=== PATIENT | female | born 1975 | race Caucasian/White ===

== ENCOUNTER 2019-03-01 07:57 | Day surgery (SDC) | payer MEDICARE, MEDICAID ==
[~2019-03-01] VITALS: Ht 167.6 cm; Wt 72.2 kg
[~2019-03-01 07:57] MED LIST: LIDOCAINE 1%-EPI 1:100K, 30ML ONE; ROPIvacaine/PF 0.5%, 30 ML ONE
[2019-03-01] MEDS ORDERED: FENTANYL PF 250 MCG/5ML ONE (08:13)
[2019-03-01] MEDS ORDERED: MIDAZOLAM 1 MG/ML, 2ML ONE (08:13)
[2019-03-01] MEDS ORDERED: LACTATED RINGERS 1,000 ML IV SCH (08:37)
[2019-03-01 08:45] LABS: HCG UR SG 1.019 (1.003-1.030)
[2019-03-01 09:01] LABS: AMPHETAMINE SCREEN, URINE Negative (Negative); BARBITURATE SCREEN, URINE Negative (Negative); BENZODIAZEPINE SCREEN, URINE Negative (Negative); CANNABINOID SCREEN, URINE Negative (Negative); COCAINE SCREEN, URINE Negative (Negative); METHADONE SCREEN, URINE Negative (Negative); OPIATE SCREEN, URINE Negative (Negative)
[2019-03-01] MEDS ORDERED: NONE PER PT (09:13)
[2019-03-01 09:14] VITALS: BP 101/70
[2019-03-01] MEDS ORDERED: ACETAMINOPHEN 500 MG TABLET PO ONE (09:30)
[2019-03-01] MEDS ORDERED: GABAPENTIN 300 MG CAPSULE PO ONE (09:30)
[2019-03-01] MEDS ORDERED: SCOPOLAMINE PATCH, 1.5MG PATCH.TD72 TD ONE (09:30)
[2019-03-01] MEDS ORDERED: ONDANSETRON 2MG/ML, 2ML ONE ×2 (09:35→11:46)
[2019-03-01] MEDS ORDERED: ROCURONIUM 10 MG/ML,10ML ONE (09:35)
[2019-03-01] MEDS ORDERED: CEFAZOLIN 1,000 MG ONE (09:35)
[2019-03-01] MEDS ORDERED: SUCCINYLCHOLINE 20 MG/ML, 10ML ONE (09:35)
[2019-03-01] MEDS ORDERED: DEXAMETHASONE 4 MG/ML, 1ML ONE (09:35)
[2019-03-01] MEDS ORDERED: PROPOFOL 10 MG/ML, 20ML ONE (09:35)
[2019-03-01] MEDS ORDERED: LABETALOL 5MG/ML, 20ML IV PRN (10:00)
[2019-03-01] MEDS ORDERED: ONDANSETRON 2MG/ML, 2ML IVPush PRN (10:00)
[2019-03-01] MEDS ORDERED: FENTANYL PF 100 MCG/2ML IV PRN (10:00)
[2019-03-01] MEDS ORDERED: ALBUTEROL SULFATE 2.5 MG/3 ML NPPB PRN (10:00)
[2019-03-01] MEDS ORDERED: HYDROmorphone 1 MG/ML, 1ML INJ IV PRN (10:00)
[2019-03-01] MEDS ORDERED: MEPERIDINE/PF 25MG/0.5ML IVPush PRN (10:00)
[2019-03-01] MEDS ORDERED: METOCLOPRAMIDE 5 MG/ML, 2ML IV PRN (10:00)
[2019-03-01] MEDS ORDERED: hydrALAzine 20 MG/ML, 1ML IV PRN (10:00)
[2019-03-01] MEDS ORDERED: PROMETHAZINE 25 MG/ML, 1ML IV PRN (10:00)
[2019-03-01] MEDS ORDERED: KETOROLAC 30 MG/1 ML IV PRN (10:00)
[2019-03-01] MEDS ORDERED: OXYcodone 5 MG/5 ML ORAL.SOL UDC PO PRN (10:00)
[2019-03-01] MEDS ORDERED: KETOROLAC 30 MG/1 ML ONE (10:53)
[2019-03-01] MEDS ORDERED: FENTANYL PF 100 MCG/2ML ONE (10:53)
[2019-03-01] MEDS ORDERED: OXYcodone 5 MG/5 ML ORAL.SOL UDC ONE (10:53)
[2019-03-01] MEDS ORDERED: MEPERIDINE/PF 25MG/ML,1ML ONE (11:01)
[2019-03-01] MEDS ORDERED: HYDROmorphone 2 MG/ML, 1ML ONE (11:18)
== END 2019-03-01 13:25 | disposition home or self-care (01) ==
LOC: OUT 07:57
PROVIDERS: ATTEND Orthopaedic Surgery
DX: S83.512A Sprain of anterior cruciate ligament of left knee, initial encounter (principal); M94.262 Chondromalacia, left knee; D64.9 Anemia, unspecified; Z79.899 Other long term (current) drug therapy; Z88.8 Allergy status to other drugs, medicaments and biological substances; Z87.39 Personal history of other diseases of the musculoskeletal system and connective tissue; Z86.73 Personal history of transient ischemic attack (TIA), and cerebral infarction without residual deficits; X58.XXXA Exposure to other specified factors, initial encounter; Y93.89 Activity, other specified; Y92.89 Other specified places as the place of occurrence of the external cause; Y99.8 Other external cause status
CPT/HCPCS: 29881; 29888; 64447; 80307; 81025; C1713; C1762; J0330; J0690; J1100; J1170; J1885; J2175; J2250; J2405; J2704; J2795; J3010; J3490; J7120